=== PATIENT | male | born 1985 | race Caucasian/White ===

== ENCOUNTER 2020-11-24 17:11 | Emergency (ER) | payer MEDICARE, OTHER ==
[~2020-11-24] VITALS: Ht 185.4 cm; Wt 99.8 kg
[2020-11-24] MEDS ORDERED: DEPAKOTE ER250 MG PO (17:52)
[2020-11-24] MEDS ORDERED: ATIVAN1 MG PO (17:52)
[2020-11-24] MEDS ORDERED: AMBIEN5 MG PO (17:53)
[2020-11-24] MEDS ORDERED: CHLORPROMAZINE (17:54)
[2020-11-24] MEDS ORDERED: CHLORPROMAZINE10 MG (17:55)
--- NOTE | 2020-11-25 11:26 | EKG ---
[facility] [address] [facility] [place] [address] Signed Sinus bradycardia Otherwise normal ECG No previous ECGs available Confirmed by SARA MUNSON MD ([id number]) on 11/25/2020 11:26:45 AM Electronically Signed By: SARA MUNSON MD 11/25/20 1126 PATIENT NAME: GIULIA LORA MARCO ANTONIO Electrocardiogram DATE OF : 83 PHYSICIAN: SARA MUNSON MD REPORT #: [id number] REPORT IS CONFIDENTIAL AND NOT TO BE RELEASED WITHOUT AUTHORIZATION
--- OUTSIDE RECORDS SUMMARY | 2020-11-25 16:58 | XMS ---
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 Has MH dx of Schizophrenia. Uses alcohol and marijuana to manage symptoms and find relief to sleep. Often escalates to severe intoxication and need for medically monitored detox in hospital setting. Responds well to [facility]. Does not regularly follow prescribed medication routine as he does not find relief with prescribed medications as well as with alcohol.\ T\nbsp; Leandro may present with loud auditory hallucinations. He is often not aware of his volume and what he is saying, intoxication makes symptoms worse. His auditory hallucinations can be extreme in content, often sounds threatening, he is speaking to the voices he is hearing and when staff engage him he is often able to be present in the moment and attend to questions or information.\T\nbsp; Care Coordination: Leandro has a legal guardian, Tanika Ohara. Please contact her at [phone] Leandro lives at [facility] in [facility].\T\nbsp; Helpful ED-Based Interventions to Try: Leandro desires sleep and relief from severe auditory hallucinations. He is agreeable to medications while in the hospital to find relief and sleep.\T\nbsp; E.D. VISIT COUNT (12 MO.) [address] [place] [id number] [place] TOTAL 3 NOTE: Visits indicate total known visits. ED/C VISIT TRACKING (12 MO.) 11/24/2020 17:[address] [facility] [place] TYPE: Emergency COMPLAINT: - MEDICAL CLEARANCE [facility] DIAGNOSES: - Adverse effect of unspecified drugs, medicaments and biological substances, initial encounter - Tachycardia - Tachycardia, unspecified 02[facility]2020 09[facility] DIAGNOSES: - Alcohol abuse, uncomplicated - Schizophrenia, unspecified - Psychiatric Evaluation INPATIENT VISIT TRACKING (12 MO.) No inpatient visits to display in this time frame [email or web address]
== END 2020-11-25 16:45 | disposition home or self-care (01) ==
LOC: ED 17:11
DX: F20.9 Schizophrenia, unspecified (principal); Z20.822 Contact with and (suspected) exposure to COVID-19; Z87.891 Personal history of nicotine dependence; Z88.8 Allergy status to other drugs, medicaments and biological substances; Z79.899 Other long term (current) drug therapy
CPT/HCPCS: 80053; 80176; 81001; 84443; 85025; 93005; 93010; 99285-25; C9803; Q0161; U0003